=== PATIENT | female | born 1955 | race Caucasian/White ===

== ENCOUNTER 2022-06-01 01:11 | Day surgery (SDC) | payer MEDICARE, SELFPAY ==
[2022-05-26 11:33] VITALS: BMI 25.4
--- NOTE | 2022-06-01 08:12 | P.PNAN_ITS ---
Anes - Initial Pre Proc Eval Procedure: Operation Date: 06/01/22 11:30 Proposed Procedures p Esophagogastroduodenoscopy EGD - Audi Triana MD Date/Time: 06/01/22 08:12 Surgeon: Audi Triana MD Pre Op Diagnosis: GERD Patient Data Age: 67 Gender: F Height: 1.55 m Weight: 61.25 kg Allergies Allergy/AdvReac Type Severity Reaction Status Date / Time cat dander Allergy Sneezing Verified 06/01/22 10:03 Home Medications Medication Instructions Recorded Confirmed Type calcium carbonate 600 mg-vitamin 1 tablet PO BID 05/26/22 06/01/22 History D3 10 mcg (400 unit) tablet (Calcium 600 + D(3)) famotidine 20 mg tablet 20 mg PO DAILY 05/26/22 06/01/22 History pantoprazole 40 mg tablet,delayed 40 mg PO QACDINNER 05/26/22 06/01/22 History release simvastatin 20 mg tablet 20 mg PO DAILY 05/26/22 06/01/22 History Patient hx anesthesia problems: none Family hx anesthesia problems: none Results Review: All pre-operative results and documents have been reviewed as part of the pre- operative evaluation. [facility] Past Medical History Medical History (Updated 06/01/22 @ 10:49 by Audi Triana MD) GERD (gastroesophageal reflux disease) Hyperlipidemia Social History Social History Smoking status: Never smoker Substance use: never Substance use type: does not use Living arrangements: with family Spiritual care concerns: No Anes - Eval Final PreProcedure Day of Procedure 06/01/22 08:12 Patient weight: overweight Heart: regular rate and rhythm Lungs: clear to auscultation Airway: Mallampati scale class II Neurological: alert and oriented Last oral intake: >/= 8 hours ASA classification: II Emergent: no Anesthetic plan: proceed Anesthesia type and monitoring: general GIVS and standard monitoring Results Review: All pre-operative results and documents have been reviewed as part of the pre- operative evaluation. Informed Consent: The patient's anesthetic plan and its attendant risks and benefits were discussed with the patient/family/POA. Questions were solicited and answers provided to the satisfaction of the patient/family/POA.
[2022-06-01 09:55] VITALS: BP 154/70; PULSE 85; RESP 18; TEMP 36.4; O2SAT 99; BMI 25.7
[2022-06-01] MEDS: LACTATED RINGERS 1,000 ML 150 ML IV CONT (10:16)
--- NOTE | 2022-06-01 10:48 | PM.HPGS ---
History of Present Illness History of Present Illness Consent: Risks, benefits, and alternatives have been discussed and questions answered. Patient agrees to proceed with procedure. Chief complaint: GERD Narrative: Lindsey Miller is a 67 year old female with gerd since January with reflux sensation, sour taste. Now using famoditine and ppi, not longer on alendronate. Also she has been on bland diet because of the same and would like to have some guidance Review of Systems Constitutional: Constitutional: Denies headache(s) and Denies weakness Eyes: Eyes: Denies blurry vision ENT: Reports Normal hearing present, Denies headache(s) and Denies neck pain Cardiovascular: Cardiovascular: Denies chest pain and Denies dyspnea Respiratory: Respiratory: Denies dyspnea Gastrointestinal: Gastrointestinal: Reports no additional gastrointestinal complaints Genitourinary: Genitourinary: Denies dysuria Musculoskeletal: Musculoskeletal: Denies neck pain Integumentary/Breasts: Skin/Breast: Denies dry skin Neurologic: Reports Normal hearing present, Denies headache(s) and Denies weakness Psychiatric: Psychiatric: Denies anxiety Endocrine: Endocrine: Denies change in body appearance Hematologic/Lymphatic: Hematologic/Lymphatic: Denies easy bleeding Allergic/Immunologic: Allergic/Immunologic: Denies urticaria PMFSH Past Medical History Medical History (Updated 06/01/22 @ 10:49 by Audi Triana MD) GERD (gastroesophageal reflux disease) Hyperlipidemia Social History Social History Smoking status: Never smoker Substance use: never Substance use type: does not use Living arrangements: with family Spiritual care concerns: No Meds Home Medications and Allergies Home Medications Medication Instructions Recorded Confirmed Type calcium carbonate 600 mg-vitamin 1 tablet PO BID 05/26/22 06/01/22 History D3 10 mcg (400 unit) tablet (Calcium 600 + D(3)) famotidine 20 mg tablet 20 mg PO DAILY 05/26/22 06/01/22 History pantoprazole 40 mg tablet,delayed 40 mg PO QACDINNER 05/26/22 06/01/22 History release simvastatin 20 mg tablet 20 mg PO DAILY 05/26/22 06/01/22 History Allergies Allergy/AdvReac Type Severity Reaction Status Date / Time cat dander Allergy Sneezing Verified 06/01/22 10:03 Vital Signs Vital Signs - 24 hr 06/01/22 09:55 Temperature 97.6 F Pulse Rate 85 Respiratory Rate 18 Blood Pressure 154/70 H Pulse Oximetry 99 Oxygen Delivery Room Air Exam Const: General: comfortable and no acute distress HENMT: Face/Nose/Sinus: Normal nares present Eyes: General: appearance normal, both eyes and all related structures Neck: Neck: no JVD Resp: Auscultation: clear to auscultation bilaterally Cardio: Rate: regular rate Rhythm: regular rhythm GI: Inspection: non-distended GI Palp: Yes Soft to palpation Skin: General skin exam: normal color Neuro: General: gait normal Speech: normal speech Extrem: General: normal to inspection Psych: Mental Status: mental status grossly normal Assessment and Plan Assessment and plan (1) GERD (gastroesophageal reflux disease): Code(s): K21.9 - Gastro-esophageal reflux disease without esophagitis Status: Acute Assessment and Plan: egd with bx
[2022-06-01 11:05] VITALS: BP 118/71; PULSE 80; RESP 22; O2SAT 96
[2022-06-01 11:15] VITALS: BP 136/69; PULSE 80; RESP 22; O2SAT 96
[2022-06-01 11:25] VITALS: BP 134/69; PULSE 77; RESP 20; O2SAT 97
== END 2022-06-01 11:50 | disposition home or self-care (01) ==
PROVIDERS: PCP Internal Medicine; Visit Provider Internal Medicine Gastroenterology
PROC: 0DJ08ZZ Inspection of Upper Intestinal Tract, Via Natural or Artificial Opening Endoscopic (ICD-10-PCS; CPT 43235; principal; 2022-06-01 11:30)
DX: K21.9 Gastro-esophageal reflux disease without esophagitis (principal); E78.5 Hyperlipidemia, unspecified
CPT/HCPCS: 43239; 88305; J2704; J3010; J7120